=== PATIENT | male | born 1945 | race Caucasian/White ===

== ENCOUNTER 2020-06-27 15:19 | Outpatient (RCR) | payer MEDICARE | END 2020-09-25 | disposition home or self-care (01) | LOC: ONC 15:19 | PROVIDERS: ATTEND Radiology Radiation Oncology | DX: C61 Malignant neoplasm of prostate (principal); I10 Essential (primary) hypertension; Z90.89 Acquired absence of other organs; Z80.51 Family history of malignant neoplasm of kidney; Z87.891 Personal history of nicotine dependence; Z95.2 Presence of prosthetic heart valve | CPT/HCPCS: 99204 ==